=== PATIENT | male | born 2000 | race Caucasian/White ===

== ENCOUNTER 2021-02-03 19:40 | Emergency (ER) | payer BC ==
[~2021-02-03] VITALS: Ht 180 cm; Wt 88.0 kg
[~2021-02-03 19:40] MED LIST: ACHD5005 PO; CETI10TA17 PO
[2021-02-03] MEDS ORDERED: CEPH500T PO (19:53)
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
[2021-02-03 19:57] VITALS: BP 146/77
[2021-02-03] MEDS ORDERED: CEPHALEXIN 250 MG (KEFLEX) CAP PO SCH (20:00)
== END 2021-02-03 20:00 | disposition home or self-care (01) ==
LOC: EDUNIT# 19:40 → ER 19:43
DX: S50.812A Abrasion of left forearm, initial encounter (principal); V29.9XXA Motorcycle rider (driver) (passenger) injured in unspecified traffic accident, initial encounter
CPT/HCPCS: 99282